=== PATIENT | male | born 1985 | race Caucasian/White ===

== ENCOUNTER 2019-10-10 16:34 | Emergency (ER) | payer OTHER, SELFPAY ==
[2019-10-10 16:38] VITALS: BP 147/96; PULSE 104; RESP 16; TEMP 36.6; O2SAT 98
--- NOTE | 2019-10-10 16:49 | ED.GENADULT ---
HPI - General Adult General Chief complaint: Ear Stated complaint: EAR PAIN Time Seen by Provider: 10/10/19 16:49 Source: patient and RN notes reviewed Mode of arrival: ambulatory Limitations: no limitations History of Present Illness HPI narrative: year-old male presents with complaints of RT side facial swelling and pain for 1 day. No treatment. Pain without gingival redness. Exacerbating consist of chewing on the RT side of mouth and opening mouth fully. Denies any drainage. No fever or chills. No neck swelling. No limitation with speaking or swallowing. Denies dental pain, swelling, or drainage. No dental trauma. No oral lesions. Tolerating liquids well. Remains active. The patient reports he have not been diagnosed with COVID-19. The patient reports he is not waiting for the results of a COVID-19 lab test. The patient reports he do not have fever, chills, weakness, or fatigue. The patient reports he do not have a new or worsening cough or shortness of breath. Denies chest pain. The patient reports he do not have any rhinorrhea, congestion, sore throat, nausea, vomiting, abdominal pain, and diarrhea, Denies recent traveling. Denies concerns for COVID-19 or exposures been home with limited outdoor exposure except for essential household needs, work, and return home. At this time, patient is not suspected of having COVID-19. Some parts of this dictation were generated by voice recognition software and may contain typographical and/or grammatical inaccuracies. Related Data Home Medications Medication Instructions Recorded Confirmed metoprolol tartrate [Lopressor] 50 mg PO DAILY 03/17/19 10/10/19 pantoprazole [Protonix] 40 mg PO QAM 03/17/19 10/10/19 paroxetine HCl [Paxil] 30 mg PO QAM 03/17/19 10/10/19 lisinopril 10 mg PO DAILY 10/10/19 10/10/19 Allergies Allergy/AdvReac Type Severity Reaction Status Date / Time clindamycin Allergy Intermediate Rash Verified 10/10/19 16:46 Sulfa (Sulfonamide Allergy Intermediate Hives / Verified 10/10/19 16:46 Antibiotics) Red Face sulfamethoxazole Allergy Unknown Hives Verified 10/10/19 16:46 trimethoprim Allergy Unknown Hives Verified 10/10/19 16:46 Review of Systems Review of Systems: Narrative: CONSTITUTIONAL: Denies fever, chills, sweats. EYES: Denies visual changes, redness, discharge. ENT: Denies rhinorrhea, congestion, sore throat. Complains of RT side of face swelling and pain, RT otalgia. CARDIOVASCULAR: Denies chest pain, palpitations, edema. RESPIRATORY: Denies dyspnea, wheezing, cough. GASTROINTESTINAL: Denies abdominal pain, nausea, vomiting, diarrhea. GENITOURINARY: Denies dysuria, hematuria, abnormal discharge. SKIN: Denies rash or itching. MUSCULOSKELETAL: Denies acute back pain, joint pain, or myalgia. NEUROLOGIC: Denies numbness or focal weakness. PSYCHIATRIC: Denies anxiety or depression. All systems reviewed and are unremarkable except as noted in HPI and below. [facility] Past Medical History Medical History (Updated 10/11/19 @ 00:00 by Jen Ferrer) Anxiety Depression History of gastroesophageal reflux (GERD) Hypertension Surgical History Surgical History (Updated 10/10/19 @ 17:14 by GONZALO Sung) No significant past surgical history Family History Family History (Updated 10/10/19 @ 17:15 by GONZALO Sung) Father Unknown family medical history Mother Acute myocardial infarction Heart disease Social History Social History (Updated 10/10/19 @ 17:15 by GONZALO Sung) Smoking packs per day: 0.45 Smoking cigarettes per day: 9.0 Years smoked: 15 Smoking pack-years: 6.75 Smoking status: Current every day smoker Tobacco type: cigarettes Second hand tobacco smoke exposure: Yes Alcohol intake: current Substance use: current Substance use type: marijuana Living arrangements: with family Occupation/Education: occupation Gender identity (if verbalized by the patient):
== END 2019-10-10 17:16 | disposition home or self-care (01) ==
PROVIDERS: Emergency Provider Nurse Practitioner Family
DX: K11.8 Other diseases of salivary glands (principal); F41.9 Anxiety disorder, unspecified; F32.9 Major depressive disorder, single episode, unspecified; I10 Essential (primary) hypertension; F17.210 Nicotine dependence, cigarettes, uncomplicated
CPT/HCPCS: 99213; G0463

== ENCOUNTER 2020-05-31 11:04 | Emergency (ER) | payer OTHER, SELFPAY ==
[2020-05-31 11:20] VITALS: BP 151/102; PULSE 100; RESP 20; TEMP 37; O2SAT 97
--- NOTE | 2020-05-31 11:38 | ED.SKABFB ---
HPI - Skin/Abscess/Foreign Bdy General Chief complaint: Wound/Laceration Stated complaint: Abcess on right thigh Time Seen by Provider: 05/31/20 11:28 Source: patient and RN notes reviewed Mode of arrival: ambulatory Limitations: no limitations History of Present Illness HPI narrative: Patient presents today with a possible abscess to the right groin x2 days that has been worsening since onset. No pain at rest, but pain increases with walking. History of abscesses several times in the past with one I&D. States the area has never been cultured. He was on amoxicillin approximately 2 months ago when he had a tooth pulled. Allergic to Bactrim and clindamycin. He has tried no [id number] treatment prior to arrival. MD complaint: abscess/boil Related Data Home Medications Medication Instructions Recorded Confirmed metoprolol tartrate [Lopressor] 50 mg PO DAILY 03/17/19 05/31/20 pantoprazole [Protonix] 40 mg PO QAM 03/17/19 05/31/20 paroxetine HCl [Paxil] 30 mg PO QAM 03/17/19 05/31/20 lisinopril 10 mg PO DAILY 10/10/19 05/31/20 Allergies Allergy/AdvReac Type Severity Reaction Status Date / Time clindamycin Allergy Intermediate Rash Verified 05/31/20 11:36 Sulfa (Sulfonamide Allergy Intermediate Hives / Verified 05/31/20 11:36 Antibiotics) Red Face sulfamethoxazole Allergy Unknown Hives Verified 05/31/20 11:36 trimethoprim Allergy Unknown Hives Verified 05/31/20 11:36 Review of Systems Review of Systems: Narrative: CONSTITUTIONAL: Denies body aches, fever, chills, or sweats. EYES: Denies visual changes, redness, or discharge. ENT: Denies rhinorrhea, congestion, sore throat, or otalgia. CARDIOVASCULAR: Denies chest pain, palpitations, or edema. RESPIRATORY: Denies cough or dyspnea. GASTROINTESTINAL: Denies abdominal pain, nausea, vomiting, or diarrhea. GENITOURINARY: Denies dysuria or hematuria. SKIN: Denies rash, itching. + Abscess to right groin MUSCULOSKELETAL: Denies back pain, joint pain, or myalgia. NEUROLOGIC: Denies headache, numbness, tingling, or weakness. PSYCH: Denies depression or anxiety. [facility] Past Medical History Medical History (Updated 05/31/20 @ 13:42 by Zoe Waller, [employer], ) Anxiety Depression History of abscess of skin and subcutaneous tissue History of gastroesophageal reflux (GERD) Hypertension Surgical History Surgical History (Updated 10/10/19 @ 17:14 by GONZALO Sung) No significant past surgical history Family History Family History (Updated 10/10/19 @ 17:15 by GONZALO Sung) Father Unknown family medical history Mother Acute myocardial infarction Heart disease Social History Social History (Updated 10/10/19 @ 17:15 by GONZALO Sung) Smoking packs per day: 0.45 Smoking cigarettes per day: 9.0 Years smoked: 15 Smoking pack-years: 6.75 Smoking status: Current every day smoker Tobacco type: cigarettes Second hand tobacco smoke exposure: Yes Alcohol intake: current Substance use: current Substance use type: marijuana Gender identity (if verbalized by the patient): Male Comments At time of signature, I have reviewed and agree with nursing past medical, surgical, social and family history unless otherwise noted. Please see nursing chart for further information. There is no relevant family history pertinent to the presenting complaint Exam Narrative: Exam Narrative: GENERAL: Well-appearing, well-nourished, and in no acute distress. HEAD: Normocephalic, atraumatic. EYES: EOMI. No redness or drainage. Conjunctivae normal. ENT: Mucous membranes pink and moist. NECK: Normal AROM. CHEST: No respiratory distress. EXTREMITIES: Normal range of motion. No edema. SKIN: Warm, dry, no rash. Capillary refill normal. Normal skin turgor. Right groin/proximal inner thigh: 5 x 7 cm area of erythema and induration with small area of fluctuance in the center. Area is tender to palpation. NEURO: No focal deficits. A
== END 2020-05-31 12:15 | disposition home or self-care (01) ==
PROVIDERS: Emergency Provider Nurse Practitioner
DX: L02.214 Cutaneous abscess of groin (principal); F17.210 Nicotine dependence, cigarettes, uncomplicated; F41.9 Anxiety disorder, unspecified; F32.9 Major depressive disorder, single episode, unspecified; K21.9 Gastro-esophageal reflux disease without esophagitis; I10 Essential (primary) hypertension
CPT/HCPCS: 10061; 87070; 87075; 87076; 87147; 87185; 87186; 87205; 99213; G0463

== ENCOUNTER 2020-06-22 17:43 | Outpatient (CLI) | payer OTHER, SELFPAY | END 2020-06-22 17:44 | disposition home or self-care (01) | LOC: ANHCOVIDVC 17:43 | PROVIDERS: PCP Nurse Practitioner | DX: Z23 Encounter for immunization (principal) | CPT/HCPCS: 0001A; 91300 ==

== ENCOUNTER 2020-07-13 17:44 | Outpatient (CLI) | payer OTHER, SELFPAY | END 2020-07-13 17:45 | disposition home or self-care (01) | LOC: ANHCOVIDVC 17:44 | PROVIDERS: PCP Nurse Practitioner | DX: Z23 Encounter for immunization (principal) | CPT/HCPCS: 0002A; 91300 ==

== ENCOUNTER 2020-10-15 17:53 | Emergency (ER) | payer OTHER, SELFPAY ==
--- NOTE | 2020-10-15 17:56 | ED.SKABFB ---
HPI - Skin/Abscess/Foreign Bdy General Chief complaint: Skin/Abscess/Foreign Body Stated complaint: [place] Skin Abcess Time Seen by Provider: 10/15/20 17:56 Source: patient and RN notes reviewed History of Present Illness HPI narrative: Patient is a 35-year-old male who presents the urgent care with complaints of an abscess to the left flank. Patient states he noticed it approximately 2 or 3 days ago and has increased in size and tenderness. Patient states that he was treated approximately 2 months ago for a staph infection and gets recurrent staph infections. Patient has not done anything [id number] for his symptoms. Denies of any fever, chills, nausea, vomiting. Denies any drainage. No other acute complaints. No acute distress noted. Patient aware of the plan of care. Some parts of this dictation were generated by voice recognition software and may contain typographical and/or grammatical inaccuracies. Related Data Home Medications Medication Instructions Recorded Confirmed metoprolol tartrate [Lopressor] 50 mg PO DAILY 03/17/19 05/31/20 pantoprazole [Protonix] 40 mg PO QAM 03/17/19 05/31/20 paroxetine HCl [Paxil] 30 mg PO QAM 03/17/19 05/31/20 lisinopril 10 mg PO DAILY 10/10/19 05/31/20 Allergies Allergy/AdvReac Type Severity Reaction Status Date / Time clindamycin Allergy Intermediate Rash Verified 10/15/20 18:05 sulfamethoxazole Allergy Unknown Hives Verified 10/15/20 18:05 trimethoprim Allergy Unknown Hives Verified 10/15/20 18:05 Review of Systems Review of Systems: CONSTITUTIONAL: Denies fever, chills, or sweats. EYES: Denies visual changes, redness, or discharge. ENT: Denies rhinorrhea, congestion, sore throat, or otalgia. CARDIOVASCULAR: Denies chest pain, palpitations, or edema. RESPIRATORY: Denies cough or dyspnea. GASTROINTESTINAL: Denies abdominal pain, nausea, vomiting, or diarrhea. GENITOURINARY: Denies dysuria or hematuria. SKIN: Reports of an abscess to the left flank MUSCULOSKELETAL: Denies back pain, joint pain, or myalgia. NEUROLOGIC: Denies headache, numbness, or weakness. All other systems reviewed are negative, except as documented in HPI. [facility] Past Medical History Medical History (Updated 10/15/20 @ 18:12 by GONZALO Pete) Anxiety Depression History of abscess of skin and subcutaneous tissue History of gastroesophageal reflux (GERD) Hypertension Surgical History Surgical History (Updated 10/10/19 @ 17:14 by GONZALO Sung) No significant past surgical history Family History Family History (Updated 10/10/19 @ 17:15 by GONZALO Sung) Father Unknown family medical history Mother Acute myocardial infarction Heart disease Social History Social History (Updated 10/10/19 @ 17:15 by GONZALO Sung) Smoking packs per day: 0.45 Smoking cigarettes per day: 9.0 Years smoked: 15 Smoking pack-years: 6.75 Smoking status: Current every day smoker Tobacco type: cigarettes Second hand tobacco smoke exposure: Yes Alcohol intake: current Substance use: current Substance use type: marijuana Gender identity (if verbalized by the patient): Male Comments At the time of my signature, I reviewed and agree with the nursing past medical, surgical, social, and family history. There is no relevant family history pertinent to the patient complaint. Exam Narrative: GENERAL: This is a well-nourished, well-developed patient, in no apparent distress. HEAD: normocephalic, atraumatic. EYES: PERRL. Sclera clear/white. Vision is grossly intact. EARS: External ears normal NOSE: External nose normal with no obvious nasal discharge, nares without redness, no rhinorrhea. THROAT: Mucous membranes moist NECK: Neck supple CARDIOVASCULAR: Regular rate and rhythm without murmurs, gallops, or rubs. RESPIRATORY: Clear to auscultation. Breath sounds equal bilaterally. No wheezes, rales, or rhonchi. SKIN: 5 x 8 cm area of erythema with firm 2
[2020-10-15 18:00] VITALS: BP 142/78; PULSE 100; RESP 20; TEMP 36.7; O2SAT 98
[2020-10-15 18:10] VITALS: BP 142/78; PULSE 100; RESP 20; TEMP 36.7; O2SAT 98
== END 2020-10-15 18:15 | disposition home or self-care (01) ==
PROVIDERS: Emergency Provider Nurse Practitioner Family; PCP Nurse Practitioner Family
DX: L02.211 Cutaneous abscess of abdominal wall (principal); F17.210 Nicotine dependence, cigarettes, uncomplicated; F41.9 Anxiety disorder, unspecified; K21.9 Gastro-esophageal reflux disease without esophagitis; I10 Essential (primary) hypertension; F32.9 Major depressive disorder, single episode, unspecified
CPT/HCPCS: 99213; G0463

== ENCOUNTER 2021-08-31 17:27 | Emergency (ER) | payer OTHER, SELFPAY ==
[2021-08-31 17:49] VITALS: BP 139/95; PULSE 88; RESP 20; TEMP 37.2; O2SAT 95
--- NOTE | 2021-08-31 18:20 | ED.URI ---
HPI - URI/Sore Throat General Chief Complaint: Upper Respiratory Infection Stated Complaint: sore throat ear pain skin infection leg Time Seen by Provider: 08/31/21 17:28 Source: patient Mode of arrival: ambulatory Limitations: no limitations History of Present Illness HPI Narrative: Mr. Roberts is a 36-year-old male patient presenting to the clinic today with complaints of sore throat, right ear pain, nasal congestion, possible skin infection. He reports he has a history of MRSA infections and he has an area to his right thigh that is swollen and draining. States that he opened himself. He is concerned about infection to this area. Also reports sore throat right ear pain and nasal congestion x2 to 3 days. He denies any fever or chills. He denies any exposure to anyone with COVID, flu, or strep. MD elicited complaint: sore throat and nasal congestion Related Data Allergies Allergy/AdvReac Type Severity Reaction Status Date / Time clindamycin Allergy Intermediate Rash Verified 08/31/21 17:57 sulfamethoxazole Allergy Unknown Hives Verified 08/31/21 17:57 trimethoprim Allergy Unknown Hives Verified 08/31/21 17:57 Review of Systems Review of Systems: Pertinent positives per HPI. Patient denies any fever, chills, rash, headache, visual changes, dizziness, cough, shortness of breath, chest pain, palpitations, nausea, vomiting, diarrhea, constipation, abdominal pain, or any urinary issues. [facility] Past Medical History Medical History Anxiety Depression History of abscess of skin and subcutaneous tissue History of gastroesophageal reflux (GERD) Hypertension Surgical History Surgical History No significant past surgical history Family History Family History Father Unknown family medical history Mother Acute myocardial infarction Heart disease Social History Social History Smoking packs per day: 0.45 Smoking cigarettes per day: 9.0 Years smoked: 15 Smoking pack-years: 6.75 Smoking status: Current every day smoker Tobacco type: cigarettes Second hand tobacco smoke exposure: Yes Alcohol intake: current Substance use: current Substance use type: marijuana Gender identity (if verbalized by the patient): Male Sexual Orientation (if Verbalized by the Patient): Straight or Heterosexual Comments At the time of my signature, I reviewed and agree with the nursing past medical, surgical, social, and family history. There is no relevant family history pertinent to the patient complaint. Exam Narrative: General: Well-developed, morbidly obese, in no apparent distress Head: Normocephalic, atraumatic Eyes: Pupils equally round and reactive to light bilaterally, EOM intact, sclera and conjunctive clear, no discharge, lids normal Ears: Left TMs intact and clear, right TM intact, red, bulging, ear canals clear, no drainage, grossly hearing normal. Nose: Nares patent, clear discharge, no inflammation, no sinus tenderness. Mouth: Oral pharynx without lesions or masses, good dentition, MMM. Oropharynx red with tonsillar swelling Neck: Supple, trachea midline, no enlargement of anterior or posterior cervical nodes, no thyroid masses or goiter palpable. Cardio: Regular rate and rhythm, s1 and s2 normal, no murmur appreciated. Resp: Clear to auscultation bilaterally, no rhonchi, rales, wheezing or rubs Integumentary: [place], warm, and dry, nonfluctuant tennis ball sized induration/abscess with open wound to the right anterior thigh with white bloody discharge. Mild erythremia, redness, and tenderness to palpation Course Course Emergency Course: Portions of this record may have been created with voice recognition software. Level of Care: Express Care Visit Vital Sig
== END 2021-08-31 18:29 | disposition home or self-care (01) ==
PROVIDERS: Emergency Provider Nurse Practitioner Family
DX: L02.415 Cutaneous abscess of right lower limb (principal); H66.001 Acute suppurative otitis media without spontaneous rupture of ear drum, right ear; J02.9 Acute pharyngitis, unspecified; Z20.822 Contact with and (suspected) exposure to COVID-19; F17.210 Nicotine dependence, cigarettes, uncomplicated; K21.9 Gastro-esophageal reflux disease without esophagitis; I10 Essential (primary) hypertension; Z86.14 Personal history of Methicillin resistant Staphylococcus aureus infection
CPT/HCPCS: 87081; 87426; 87880; 99213; C9803; G0463

== ENCOUNTER 2022-02-08 18:01 | Emergency (ER) | payer OTHER, SELFPAY ==
[2022-02-08 18:15] VITALS: BP 150/95; PULSE 102; RESP 18; TEMP 35.5; O2SAT 98
--- NOTE | 2022-02-08 20:29 | ED.SKABFB ---
HPI - Skin/Abscess/Foreign Bdy General Chief complaint: Skin/Abscess/Foreign Body Stated complaint: Abcess on right leg (2) Time Seen by Provider: 02/08/22 20:25 Source: patient Mode of arrival: ambulatory Limitations: no limitations History of Present Illness HPI narrative: 36-year-old male who presents to [facility] with complaints of abscess to right leg noted to right lateral leg which is [id number] with darkened center with no fluctuation of tissue noted and also area to medial aspect of right proximal lower leg which has center initial scabbing with redness total area of 5cm by 3cm which patient stated had drained some white material but is presently not draining.Patient relays history of multiple abscess areas on body has had past MRSA infections. Patient denies any fevers, chills or sweats. MD complaint: abscess/boil Onset (ago): day(s) (5//day ago) Treatments prior to arrival: OTC topical medication and other (cleansed with peroxide.) Related Data Home Medications Medication Instructions Recorded Confirmed atorvastatin 20 mg tablet 20 mg PO DAILY 02/08/22 02/08/22 cyclobenzaprine 10 mg tablet 10 mg PO TID 02/08/22 02/08/22 ergocalciferol (vitamin D2) 1,250 1,250 mcg PO WEEKLY 02/08/22 02/08/22 mcg (50,000 unit) capsule (Vitamin D2) lisinopril 20 mg tablet 20 mg PO DAILY 02/08/22 02/08/22 montelukast 10 mg tablet 10 mg PO DAILY 02/08/22 02/08/22 (Singulair) Allergies Allergy/AdvReac Type Severity Reaction Status Date / Time clindamycin Allergy Intermediate Rash Verified 02/08/22 19:22 sulfamethoxazole Allergy Unknown Hives Verified 02/08/22 19:22 trimethoprim Allergy Unknown Hives Verified 02/08/22 19:22 Review of Systems Review of Systems: CONSTITUTIONAL: Denies fever, chills, or sweats. CARDIOVASCULAR: Denies chest pain, palpitations, or edema. RESPIRATORY: Denies cough or dyspnea. SKIN: Reports abscess X2 to right lower leg lateral and medial aspects MUSCULOSKELETAL: Denies joint pain or myalgia. NEUROLOGIC: Denies headache, numbness, or weakness. All systems reviewed & are unremarkable except as noted in HPI and below [facility] Past Medical History Medical History Anxiety Depression History of abscess of skin and subcutaneous tissue History of gastroesophageal reflux (GERD) Hypertension Surgical History Surgical History No significant past surgical history Family History Family History Father Unknown family medical history Mother Acute myocardial infarction Heart disease Social History Social History (Updated 02/12/22 @ 13:09 by Gregoria Wynn NP) Smoking packs per day: 0.75 Smoking cigarettes per day: 15.0 Years smoked: 17 Smoking pack-years: 12.75 Smoking status: Current every day smoker Tobacco type: cigarettes Second hand tobacco smoke exposure: Yes Alcohol intake: current Substance use: current Substance use type: marijuana Gender identity (if verbalized by the patient): Male Sexual Orientation (if Verbalized by the Patient): Straight or Heterosexual Comments At time of signature, agree with nursing past medical, surgical, social and family history. There is no relevant family history pertinent to the presenting complaint Exam Narrative: GENERAL: Well-appearing, well-nourished, obese and in no acute distress. HEAD: Normocephalic, atraumatic. EYES: PERRLA, conjunctivae clear, and EOMI. ENT: Mucous membranes moist. Oropharynx without edema, erythema or lesions. NECK: Supple. No lymphadenopathy CHEST: Clear to auscultation. No respiratory distress. HEART: Regular rate and rhythm. SKIN: Warm, dry.?Abscess X2 to right lower leg, one lateral 1cm X1cm redness with dark center scab which has been there for 5 days, and one medial area which has been there
== END 2022-02-08 20:37 | disposition home or self-care (01) ==
PROVIDERS: Emergency Provider Registered Nurse; PCP Nurse Practitioner Family
DX: L02.415 Cutaneous abscess of right lower limb (principal); I10 Essential (primary) hypertension; F17.210 Nicotine dependence, cigarettes, uncomplicated
CPT/HCPCS: 99213; G0463

== ENCOUNTER 2022-10-20 16:31 | Emergency (ER) | payer OTHER, SELFPAY ==
[2022-10-20 16:46] VITALS: BP 149/82; PULSE 83; RESP 20; TEMP 36.3; O2SAT 97
--- NOTE | 2022-10-20 17:25 | ED.GENADULT ---
HPI - General Adult General Chief complaint: Upper Respiratory Infection Stated complaint: cougg,runny nose,sore throat Source: patient Mode of arrival: ambulatory Limitations: no limitations History of Present Illness HPI narrative: Patient presents for evaluation of sick symptoms for last 2 days. Symptoms include productive cough of clear/yellow sputum, runny nose, sore throat. No fever, chills, nausea, vomiting, shortness of breath. He has tried Mucinex, Tylenol, DayQuil for his symptoms. He smokes 1 pack per day. His also smokes marijuana and he is exposed to secondhand smoke from that. His and all of her children are being evaluated here for similar symptoms. Related Data Home Medications Medication Instructions Recorded Confirmed atorvastatin 20 mg tablet 20 mg PO DAILY 02/08/22 02/08/22 ergocalciferol (vitamin D2) 1,250 1,250 mcg PO WEEKLY 02/08/22 02/08/22 mcg (50,000 unit) capsule (Vitamin D2) lisinopril 20 mg tablet 20 mg PO DAILY 02/08/22 02/08/22 montelukast 10 mg tablet 10 mg PO DAILY 02/08/22 02/08/22 (Singulair) cetirizine 10 mg tablet mg 10/20/22 Allergies Allergy/AdvReac Type Severity Reaction Status Date / Time clindamycin Allergy Intermediate Rash Verified 02/08/22 19:22 sulfamethoxazole Allergy Unknown Hives Verified 02/08/22 19:22 trimethoprim Allergy Unknown Hives Verified 02/08/22 19:22 Review of Systems Review of Systems: CONSTITUTIONAL: Denies fever, chills, or sweats. EYES: Denies visual changes, redness, or discharge. ENT: Reports sore throat and runny nose. CARDIOVASCULAR: Denies chest pain, palpitations, or edema. RESPIRATORY: Reports productive cough of clear/yellow sputum GASTROINTESTINAL: Denies abdominal pain, nausea, vomiting, or diarrhea. GENITOURINARY: Denies dysuria or hematuria. SKIN: Denies rash or itching. MUSCULOSKELETAL: Denies back pain, joint pain, or myalgia. NEUROLOGIC: Denies headache, numbness, dizziness, or weakness. PSYCHIATRIC: Denies anxiety or depression. [facility] Past Medical History Medical History Anxiety Depression History of abscess of skin and subcutaneous tissue History of gastroesophageal reflux (GERD) Hypertension Surgical History Surgical History No significant past surgical history Family History Family History Father Unknown family medical history Mother Acute myocardial infarction Heart disease Social History Social History Smoking packs per day: 1 Smoking cigarettes per day: 20.0 Years smoked: 17 Smoking pack-years: 17.00 Smoking status: Current every day smoker Tobacco type: cigarettes Second hand tobacco smoke exposure: Yes Alcohol intake: current Substance use: current Substance use type: marijuana Living arrangements: with family Occupation/Education: occupation Gender identity (if verbalized by the patient): Male Sexual Orientation (if Verbalized by the Patient): Straight or Heterosexual Exam Narrative: GENERAL: Well-appearing, well-nourished, and in no acute distress. HEAD: Normocephalic, atraumatic. EYES: PERRLA and EOMI. ENT: Nares clear, no rhinorrhea or epistaxis. Mucous membranes moist. Bilateral tonsillar swelling and erythema. No exudate. Uvula is midline. Bilateral TMs pearly boss nonbulging NECK: Supple. No adenopathy or masses. No carotid bruits or JVD CHEST: Clear to auscultation. No respiratory distress. No wheezes rales or rhonchi HEART: Regular rate and rhythm. No murmur heard. Normal peripheral pulses. ABDOMEN: Soft, nontender, nondistended, normal active bowel sounds. EXTREMITIES: Normal range of motion. No edema. SKIN: Warm, dry, no rash. NEURO: No focal deficits. Alert and oriented x3. PSYCH: Normal mood
== END 2022-10-20 18:07 | disposition home or self-care (01) ==
PROVIDERS: Emergency Provider Nurse Practitioner; PCP Nurse Practitioner Family
DX: B34.9 Viral infection, unspecified (principal); Z20.822 Contact with and (suspected) exposure to COVID-19; F17.210 Nicotine dependence, cigarettes, uncomplicated; K21.9 Gastro-esophageal reflux disease without esophagitis; I10 Essential (primary) hypertension
CPT/HCPCS: 87081; 87426; 87804; 87880; 99213; C9803; G0463

== ENCOUNTER 2023-04-23 15:56 | Emergency (ER) | payer OTHER, SELFPAY ==
[2023-04-23 16:01] VITALS: BP 150/102; PULSE 87; RESP 16; TEMP 36.8; O2SAT 100
--- NOTE | 2023-04-23 16:25 | ED.GENADULT ---
HPI - General Adult General Chief complaint: Upper Respiratory Infection Stated complaint: abcess on left upper buttocks Source: patient, RN notes reviewed and old records reviewed Mode of arrival: ambulatory Limitations: no limitations History of Present Illness HPI narrative: 38-year-old male presents to [facility] with complaint abscess to left buttocks. Patient states noted on Friday. Patient states has gotten much bigger. Patient states has had some drainage. Patient has history of abscesses with MRSA. Related Data Home Medications Medication Instructions Recorded Confirmed atorvastatin 20 mg tablet 20 mg PO DAILY 02/08/22 04/23/23 ergocalciferol (vitamin D2) 1,250 1,250 mcg PO WEEKLY 02/08/22 04/23/23 mcg (50,000 unit) capsule (Vitamin D2) lisinopril 20 mg tablet 20 mg PO DAILY 02/08/22 04/23/23 montelukast 10 mg tablet 10 mg PO DAILY 02/08/22 04/23/23 (Singulair) docusate sodium 100 mg capsule 100 mg PO DAILY 04/23/23 04/23/23 Allergies Allergy/AdvReac Type Severity Reaction Status Date / Time clindamycin Allergy Intermediate Rash Verified 04/23/23 16:12 sulfamethoxazole Allergy Unknown Hives Verified 04/23/23 16:12 trimethoprim Allergy Unknown Hives Verified 04/23/23 16:12 Review of Systems Constitutional: Constitutional: Reports no additional constitutional complaints, Denies body ache(s), Denies chills, Denies fatigue, Denies fever(s) and Denies headache(s) Eyes: Eyes: Reports no additional eye complaints and Denies blurry vision ENT: Reports system reviewed and no additional complaints, except as documented, Denies vertigo, Denies dizziness, Denies ear discharge, Denies otalgia, Denies facial pain, Denies headache(s), Denies nasal congestion, Denies nasal discharge, Denies sinus pain, Denies sinus pressure and Denies sore throat Cardiovascular: Cardiovascular: Reports no additional cardiovascular complaints, Denies chest pain, Denies chest pain at rest, Denies rapid heart rate and Denies dyspnea Respiratory: Respiratory: Reports no additional respiratory complaints, Denies chest congestion, Denies cough, Denies pain on inspiration, Denies pain with cough and Denies dyspnea Gastrointestinal: Gastrointestinal: Denies abdominal pain, Denies diarrhea, Denies nausea and Denies vomiting Integumentary/Breasts: Skin/Breast: Denies rash and Reports wounds Neurologic: Reports system reviewed and no additional complaints, except as documented, Denies vertigo, Denies dizziness and Denies headache(s) Endocrine: Endocrine: Denies fatigue PMFSH Past Medical History Medical History Anxiety Depression History of abscess of skin and subcutaneous tissue History of gastroesophageal reflux (GERD) Hypertension Surgical History Surgical History No significant past surgical history Family History Family History Father Unknown family medical history Mother Acute myocardial infarction Heart disease Social History Social History Smoking packs per day: 1 Smoking cigarettes per day: 20.0 Years smoked: 17 Smoking pack-years: 17.00 Smoking status: Current every day smoker Tobacco type: cigarettes Second hand tobacco smoke exposure: Yes Alcohol intake: current Substance use: current Substance use type: marijuana Living arrangements: with family Occupation/Education: occupation Gender identity (if verbalized by the patient): Male Sexual Orientation (if Verbalized by the Patient): Straight or Heterosexual Comments At the time of my signature, I reviewed and agree with the nursing past medical, surgical, social, and family history. There is no relevant family history pertinent to the patient complaint. Exam Const: General: cooperative, healthy appearing,
== END 2023-04-23 16:46 | disposition home or self-care (01) ==
PROVIDERS: Emergency Provider Registered Nurse; PCP Nurse Practitioner Family
DX: L02.31 Cutaneous abscess of buttock (principal); F17.210 Nicotine dependence, cigarettes, uncomplicated; K21.9 Gastro-esophageal reflux disease without esophagitis; I10 Essential (primary) hypertension
CPT/HCPCS: 99213; G0463